=== PATIENT | male | born 1980 | race Caucasian/White ===

== ENCOUNTER 2021-02-19 07:29 | Inpatient (IN) ==
--- NOTE | 2021-02-18 08:44 | Anesthesiology Consultation ---
Date of Service February 18, 2021 Assessment & Plan (1) Encounter for pre-operative examination: Chart Review Chart Review: Acceptable Risk for Surgery and Patient NOT seen in Pre Admission Testing Per nursing assessment 02/18/21, patient denies any recent travel. No known Covid positive contacts or Covid related symptoms. No known Covid infection in the past 90 days. Covid test 02/17/21= negative -PCP informed of chest x-ray results. Per PCP response 02/18/21 requested nursing call patient and inquire if he has history of lung infection and/or symptoms of REILLY/cough. If notpatient may proceed with surgery. If yespostpone surgery. Per nursing 02/18/2021atient states he has no history of lung infections. He currently does not have any REILLY, SOB or cough. Advised patient per note below he can then proceed with surgery. PCP ordering chest CT and BMP for the future. History Surgery Operation Date: 02/19/21 09:20 Proposed Procedures p L4-S1 Decompression and Fusion, Spinal Cord Monitoring - Rubén Schuler DO Height/Weight Height: 6 ft 2 in Weight: 111.13 kg Allergies Allergy/AdvReac Type Severity Reaction Status Date / Time No Known Allergies Allergy Verified 02/18/21 08:19 Medications Home Medications Medication Instructions Recorded Confirmed Last Taken gabapentin 300 mg PO TID 02/18/21 02/18/21 Unknown Past Medical History Medical History History of melanoma ON FOREHEAD Hypoglycemia LAST EPISODE 2 YEARS AGO Lumbar herniated disc Past Family History Family History Other No family history of adverse response to anesthesia Past Surgical History Surgical History Hx of vasectomy [place] teeth removed Social History Smoking Status: Former smoker tobacco type: cigarettes and smokeless tobacco Do You Dip or Chew Tobacco: Yes (ADVISED BY NURSING (5 CANS WEEKLY)) Smoking End Date: 2005 Hx Alcohol Use: Yes Alcohol type: beer and hard liquor alcohol intake frequency: 3 or more drinks per day Alcohol Intake Frequency Comment: 3-5 DRINKS DAILY Hx Substance Use: No Testing Laboratory Results Laboratory Tests 02/17/21 02/17/21 02/17/21 16:50 16:50 16:50 WBC 7.36 Hgb 15.0 Hct 42.9 Plt Count 246 PT 10.3 INR 1.0 Sodium 136 Potassium 3.8 Chloride 104 Carbon Dioxide 29 BUN 9 Creatinine 0.83 Glucose 86 02/17/21= UA: negative Electrocardiogram Date: 02/17/21 Findings: + NSR @ (82bpm) Normal EKG. Chest X-Ray Date: 02/17/21 FINDINGS: Lung volumes are normal. There is no pneumothorax or pleural effusion. Cardiac size is normal. Mediastinal contours are normal. Note is made of numerous subcentimeter pulmonary nodules. These may be calcified. IMPRESSION: No acute cardiopulmonary findings. Multiple small pulmonary nodules. These may be calcified. However, correlation with prior imaging studies, if available, is recommended. In the absence of prior studies, a chest CT is recommended. (Sent for PCP review)
[~2021-02-19 07:29] MED LIST: ACETAMINOPHEN 500 MG TAB PO SCH; CeleBREX 200 MG CAP PO SCH; GABAPENTIN 900 MG DOSE PO SCH; LR 15ML/HR IV SCH; ceFAZolin 2000MG 2,000 MG/15 ML SYR IV SCH
[2021-02-19] MEDS ORDERED: GLYCOPYRROLATE 0.2 MG/ML VIAL ONE (09:38)
[2021-02-19] MEDS ORDERED: NEOSTIGMINE METHYLSULFATE 1 MG/ML 10ML VIAL ONE (09:38)
[2021-02-19] MEDS ORDERED: LIDOCAINE HCL 2% 2 ML VIAL/AMP(20MG/ML) INFIL ONE (09:38)
[2021-02-19] MEDS ORDERED: MIDAZOLAM HCL 1 MG/ML 2ML VIAL ONE (09:38)
[2021-02-19] MEDS ORDERED: fentaNYL citrate 100 MCG/2 ML VIAL ONE ×2 (09:38)
[2021-02-19] MEDS ORDERED: ONDANSETRON INJ 2 MG/ML 2 ML VIAL ONE (09:38)
[2021-02-19] MEDS ORDERED: PROPOFOL IV EMULSION 10 MG/ML 20 ML VIAL IV ONE (09:38)
[2021-02-19] MEDS ORDERED: DEXAMETHASONE SOD INJ 4 MG/ML VIAL ONE (09:38)
--- NOTE | 2021-02-19 09:49 | History & Physical Bridge Note ---
Date of Service February 19, 2021 History & Physical Bridge Note I have examined the patient, reviewed the History & Physical and in the interval since the performance of the History & Physical I have noted the following changes of clinical significance: no changes noted
--- NOTE | 2021-02-19 09:50 | History & Physical Report ---
Date of Service February 19, 2021 Assessment & Plan (1) Neurogenic claudication due to lumbar spinal stenosis: Admission and Anticipated Discharge Date Admission Date: L4-S1 decompression History of Present Illness Chief Complaint: Back and bilateral leg pain Primary Care Provider: Lo Armstrong MD This is a 40-year-old male who presents with chronic persistent back and leg pain. After failing course of nonoperative care is here for surgical invention. Allergies Allergy/AdvReac Type Severity Reaction Status Date / Time No Known Allergies Allergy Verified 02/19/21 07:49 Home Medications Medication Instructions Recorded Confirmed Type gabapentin 300 mg PO TID 02/18/21 02/19/21 History Past Med/Surg History Medical History History of melanoma ON FOREHEAD Hypoglycemia LAST EPISODE 2 YEARS AGO Lumbar herniated disc Surgical History Hx of vasectomy [place] teeth removed Family History Other No family history of adverse response to anesthesia Social History Smoking Status: Former smoker Smoking End Date: 2005; Second Hand Exposure: Yes ( A CHILD); Do You Dip or Chew Tobacco: Yes (ADVISED BY NURSING (5 CANS WEEKLY)); Tobacco Cessation Education Requested by Patient: No Hx Alcohol Use: Yes Alcohol type: beer and hard liquor Hx Substance Use: No Preferred Language: Frisian Provisioning Specialist Required: No Beliefs That Will Affect Care: None Current Living Situation: Family Current Living Situation Comment: AND 2 SONS Feels Safe at Home: Yes Safety Concerns: Feels Safe At This Time Assistive Devices: Contacts and Glasses Physical Exam Physical Exam: Patient is alert and oriented Heart regular in rhythm Lungs clear to auscultation Results & Data ([facility]) Vital Signs (Past 12 Hours) Vital Signs Temp Pulse Resp BP Pulse Ox 02/19/21 08:01 36.8 C 75 16 133/92 96
[2021-02-19] MEDS ORDERED: ePHEDrine sulfate 50 MG/ML AMP IV PRN (10:01)
[2021-02-19] MEDS ORDERED: PROMETHAZINE HCL 12.5 MG in SODIUM CHLORIDE 0.9% 50 ML IV PRN ×2 (10:01→14:03)
[2021-02-19] MEDS ORDERED: fentaNYL citrate 100 MCG/2 ML VIAL IV PRN (10:01)
[2021-02-19] MEDS ORDERED: ONDANSETRON INJ 2 MG/ML 2 ML VIAL IV PRN ×2 (10:01→14:03)
[2021-02-19] MEDS ORDERED: HYDROmorphone INJ 2 MG/ML SYR/VIAL IV PRN (10:01)
[2021-02-19] MEDS ORDERED: ATROPINE SULFATE 0.1 MG/ML 10ML SYR IV PRN (10:01)
[2021-02-19] MEDS ORDERED: BUPIVACAINE 0.5 % 5 MG/1 ML MPF 30ML VIAL ONE ×2 (10:31→10:32)
[2021-02-19] MEDS ORDERED: BACITRACIN INJ 50,000 UNIT VIAL ONE (10:31)
[2021-02-19] MEDS ORDERED: BUPIVACAINE/EPINEPHRINE 0.5% MPF 1:200,000 30 ML VIAL ONE (10:32)
[2021-02-19] MEDS ORDERED: HYDROmorphone INJ 2 MG/ML SYR/VIAL ONE (10:47)
[2021-02-19] MEDS ORDERED: SUGAMMADEX SODIUM 200 MG/2 ML VIAL IV ONE (11:50)
[2021-02-19] MEDS ORDERED: FLOSEAL HEMOSTATIC MATRIX 10ML TOP ONE (12:43)
--- NOTE | 2021-02-19 12:46 | Operative Report ---
Post Operative Report Pre & Post Diagnosis Operation Date: 02/19/21 09:20 Pre-Op Diagnosis: Disc Discorder with Radiculopathy, Lumbar Region Post-Op Diagnosis: Disc Discorder with Radiculopathy, Lumbar Region I identified the patient and participated in the time-out.: Yes Procedure Operation Date: 02/19/21 09:20 Actual Procedures #1 Lumbar decompression with bilateral medial facetectomies and foraminotomies L3-4, L4-5 and L5-S1. #2 posterior spinal fusion L4-5 L5-S1. #3 placement posterior instrumentation L4-5 L5-S1. #4 interbody fusion L4-5 L5-S1. #5 placement peek cage 13 x 26 mm at L4-L5 and 14 x 26 mm at L5-S1. #6 placement locally harvested morselized autograft in the posterior lateral gutters. #7 placement of I factor in the interbody spacers and posterior lateral gutters. Surgeon Rubén Schuler, DO Shipfitter Mary De Jesus Estimated Blood Loss 600 Findings See Below The patient is 6 foot 2 inches tall weighing over 118 kg with a BMI in excess of 33. This combined with an EBL of greater than 600 cc created significant technical difficulty requiring her deepest retractors longus instruments in order to perform his procedure. This had at least 50% increase operative time. Specimens None Indications This is a 40-year-old male who presents with above-mentioned diagnosis after failing extensive course of nonoperative care is here for the above-mentioned procedure. Description of Procedure Patient was met with identified informed consent obtained. Patient was then taken to the operative suite underwent a patient placed in prone position the Alejandro table atop Prasad frame. All bony prominences well-padded eyes inspected to ensure no external pressure placed upon the. This point the lumbar spine was prepped and draped in a sterile fashion. Sharp dissection with the assistance of Bovie cautery was performed down to and exposing the lamina and transverse processes of L4-L5 and sacral ala bilaterally. From a caudal cephalad fashion I performed a midline decompression of L5 and L4 but adequately decompress the nerve roots at L5-S1 I had to perform a complete facetectomy and foraminotomies on the left noting a free fragment of disc material migrated caudally within the axilla of the S1 nerve root. At L4 he required aggressive bilateral medial facetectomies for adequate decompression. At both L4-L5 iatrogenic instability was created. Subsequently after decompression and removal of the disc herniation at L4-5 L5-S1 I elected to place pedicle screws in L4-L5 and S1 levels. The proper sized wilder was then placed. By way of a transforaminal approach on the left complete discectomy of L5-S1 was performed e ndplates curetted to subcortical being bone and a 14 x 26 mm peek cage filled with I factor tapped in position. At L45 again a complete discectomy was performed through transfer approach on the left. The endplates curetted to subcortical mean bone and a 13 x 26 mm peek cage with I factor tapped in position. The rods then locked in final position bilaterally. The transverse processes of L4-L5 and sacral ala burred to subcortical bleeding bone. I factor and local autograft was placed in the posterior gutters. 15 round RICHA drain inserted. Incision was then closed with 1 Vicryl the fascia 2-0 Vicryl subcutaneously and 4 Monocryl for final skin closure. Steri-Strip sterile dressing placed. Patient waken taken PACU stable condition. Please note Mary De Jesus present at the entire procedure on the patient positioning complex portions of the surgery and final skin closure. Lastly spinal cord monitoring was utilized at the procedure no changes noted. I attest to the content of the Intraoperative Record and any orders documented therein. Any exceptions are noted below.
[2021-02-19] MEDS ORDERED: ROCURONIUM BROMIDE 10 MG/ML 5 ML VIAL IV ONE (12:49)
--- NOTE | 2021-02-19 13:24 | Fluoroscopy Report ---
FL lumbar spine 2-3V CLINICAL HISTORY: L4-S1 DECOMPRESSION AND FUSION COMPARISON STUDY: None. FLUOROSCOPY TIME: 28 seconds. FINDINGS: 2 fluoroscopic spot images of the lumbar spine demonstrate L4-S1 posterior decompression an d fusion. There is a curvilinear metallic density at the L4-5 laminectomy site. IMPRESSION: A curvilinear metallic density at the L4-5 laminectomy site. This could represent a known pledget versus a suture needle. Clinical correlation recommended. This finding was called/faxed to t he referring physician following dictation. ACT 112: Negative or not required by law. Electronically signed by: Baljinder Murphy M.D. 02/19/2021 1:22 PM
--- NOTE | 2021-02-19 13:43 | Anesthesiology Progress Note ---
Date of Service February 19, 2021 Anesthesia Post Procedure Vital Signs Vital Signs: Temp Pulse Pulse Resp BP Pulse Ox 02/19/21 13:35 76 14 95/54 L 95 02/19/21 13:25 71 16 103/68 95 02/19/21 13:15 85 13 116/71 94 02/19/21 13:09 36.3 C L 96 H 17 123/80 95 02/19/21 08:01 36.8 C 75 16 133/92 96 Pain Intensity Posterior Back: Pain Intensity: 8 Back: Pain Intensity: 3 Transfer of Care Handoff Completed per policy Notes Mental Status: alert / awake / arousable and participated in evaluation Patient Amnestic to Procedure: Yes Nausea / Vomiting: adequately controlled Pain: adequately controlled Airway Patency, RR, SpO2: stable & adequate BP & HR: stable & adequate Hydration State: stable & adequate Anesthetic Complications: no major complications apparent and Pt Satisfied with anesthetic care
[2021-02-19] MEDS ORDERED: DO NOT ADMINISTER PNEUMOCOCCAL VACCINE PRN (14:03)
[2021-02-19] MEDS ORDERED: HYDROmorphone INJ 0.5 MG/0.5 ML SYR IV PRN (14:03)
[2021-02-19] MEDS ORDERED: bisacodyL 10 MG SUPP PR PRN (14:03)
[2021-02-19] MEDS ORDERED: LORazepam 0.5 MG/1 ML VIAL IV PRN (14:03)
[2021-02-19] MEDS ORDERED: MAGNESIUM HYDROXIDE SUSP 30 ML UDC PO PRN (14:03)
[2021-02-19] MEDS ORDERED: SOD PHOSPHATE/SOD BIPHOSPHATE ENEMA 132 ML BTL PR PRN (14:03)
[2021-02-19] MEDS ORDERED: METOCLOPRAMIDE HCL INJ 5 MG/ML 2 ML VIAL IV PRN (14:03)
[2021-02-19] MEDS ORDERED: ACETAMINOPHEN 1,000 MG/100 ML VIAL IV PRN (14:03)
[2021-02-19] MEDS ORDERED: NALOXONE HCL 0.4 MG/1 ML VIAL/CARP IV PRN (14:03)
[2021-02-19] MEDS ORDERED: diphenhydrAMINE Capsule 25 MG CAP PO PRN (14:03)
[2021-02-19] MEDS ORDERED: ONDANSETRON 4 MG OD TAB PO PRN (14:03)
[2021-02-19] MEDS ORDERED: hydrOXYzine HCl 25 MG TAB PO PRN (14:03)
[2021-02-19] MEDS ORDERED: traMADol HCL 50 MG TABLET PO PRN (14:03)
[2021-02-19] MEDS ORDERED: FAMOTIDINE 20 MG TAB PO PRN (14:03)
[2021-02-19] MEDS ORDERED: ALUMINUM/MAGNESIUM SUSP 30 ML UDC PO PRN (14:03)
[2021-02-19] MEDS ORDERED: LORazepam 0.5 MG TAB PO PRN (14:03)
[2021-02-19] MEDS ORDERED: DO NOT ADMINISTER FLU VACCINE PRN (14:03)
[2021-02-19] MEDS: HYDROmorphone INJ 1 MG/ML SYRINGE IV PRN (14:15)
[2021-02-19] MEDS: LACTATED RINGER'S 1,000 ML IV SCH ×2 (14:43→20:27)
[2021-02-19] MEDS: KETOROLAC 30 MG/ML VIAL IV SCH ×2 (15:04→20:25)
[2021-02-19] MEDS: GABAPENTIN 300 MG CAP PO SCH ×2 (15:53→20:26)
[2021-02-19] MEDS: ceFAZolin 2000MG 2,000 MG/15 ML SYR IV SCH (18:20)
[2021-02-19] MEDS: oxyCODONE HCL IR 5 MG TAB (IMMEDIATE RELEASE) PO PRN (18:29)
[2021-02-19] MEDS: DOCUSATE SODIUM/SENNA 50/8.6MG TAB PO SCH (20:26)
[2021-02-20] MEDS: ceFAZolin 2000MG 2,000 MG/15 ML SYR IV SCH (02:05)
[2021-02-20] MEDS: KETOROLAC 30 MG/ML VIAL IV SCH ×2 (02:05→07:56)
[2021-02-20] MEDS: POLYETHYLENE (MIRALAX) 17 GM PACK PO SCH ×4 (05:40→22:46)
[2021-02-20] MEDS: oxyCODONE HCL IR 5 MG TAB (IMMEDIATE RELEASE) PO PRN ×3 (05:47→22:45)
[2021-02-20 06:11] LABS: Basophils # (auto) 0.01 K/uL (0-0.2); Basophils % (auto) 0.1 %; Eosinophils # (auto) 0.04 K/uL (0-0.5); Eosinophils % (auto) 0.3 %; Hematocrit (blood only) 33.7 % (42-52); Hemoglobin 11.6 g/dL (14.0-18.0); Immature Granulocytes # (auto) 0.01 K/uL (0.00-0.02); Immature Granulocytes % (auto) 0.1 %; Lymphocytes # (auto) 1.56 K/uL (1.2-3.4); Lymphocytes % (auto) 13.1 %; Mean Corpuscular Hemoglobin 30.6 pg (25-34); Mean Corpuscular Hgb Conc 34.4 g/dL (32-36); Mean Corpuscular Volume 88.9 fL (80-100); Mean Platelet Volume 9.2 fL (7.4-10.4); Monocytes # (auto) 1.51 K/uL (0.11-0.59); Monocytes % (auto) 12.6 %; Neutrophils # (auto) 8.82 K/uL (1.4-6.5); Neutrophils % (auto) 73.8 %; Platelet Count 218 K/uL (130-400); RDW Coefficient of Variation 12.7 % (11.5-14.5); RDW Standard Deviation 40.9 fL (36.4-46.3); Red Blood Count 3.79 M/uL (4.7-6.1); White Blood Count 11.95 K/uL (4.8-10.8)
[2021-02-20 06:34] LABS: Calcium 8.5 mg/dl (8.5-10.1); Creatinine Clr Calc Pharmacy 167.8 ml/min; Est GFR (African American) 129.8; Potassium 3.9 mmol/L (3.5-5.1)
[2021-02-20] MEDS: GABAPENTIN 300 MG CAP PO SCH ×3 (07:54→20:17)
[2021-02-20] MEDS: LACTATED RINGER'S 1,000 ML IV SCH (11:53)
--- NOTE | 2021-02-20 12:35 | Orthopedic Progress Note ---
Date of Service February 20, 2021 Assessment & Plan (1) Neurogenic claudication due to lumbar spinal stenosis: Admission and Anticipated Discharge Date Admission Date: February 19, 2021 This time continue physical therapy monitor his RICHA output hopefully discharge home early next week. Subjective Back pain controlled leg pain improved Physical Exam Physical Exam: On exam patient is a chair at the bedside. He is comfortable. He still has significant strength deficits to plantar flexion on the left foot. He is however tolerating walking with a walker. Results & Data ([facility]) Vital Signs (Past 12 Hours) Vital Signs Temp Pulse Resp BP BP Pulse Ox 02/20/21 07:43 36.9 C 84 16 120/69 98 02/20/21 03:30 36.5 C 42 L 14 117/82 96
[2021-02-20] MEDS: DOCUSATE SODIUM/SENNA 50/8.6MG TAB PO SCH (20:17)
[2021-02-20] MEDS: HYDROmorphone INJ 1 MG/ML SYRINGE IV PRN (20:17)
[2021-02-21] MEDS: POLYETHYLENE (MIRALAX) 17 GM PACK PO SCH ×3 (05:23→17:00)
[2021-02-21] MEDS: oxyCODONE HCL IR 5 MG TAB (IMMEDIATE RELEASE) PO PRN (06:20)
[2021-02-21] MEDS: ACETAMINOPHEN 500 MG TAB PO PRN ×2 (09:10→16:59)
[2021-02-21] MEDS: HYDROmorphone INJ 1 MG/ML SYRINGE IV PRN (09:10)
[2021-02-21] MEDS: GABAPENTIN 300 MG CAP PO SCH ×3 (09:15→21:59)
[2021-02-21] MEDS: dexAMETHasone 8 MG in SYRINGE 0 ML IV SCH (09:15)
--- NOTE | 2021-02-21 12:40 | Orthopedic Progress Note ---
Date of Service February 21, 2021 Assessment & Plan (1) Neurogenic claudication due to lumbar spinal stenosis: Admission and Anticipated Discharge Date Admission Date: February 19, 2021 We will continue with physical therapy today monitor his RICHA output. Pending his progress we may discharge home tomorrow. Subjective Patient's back pain is quite limiting today. His leg pain is improved but still significant numbness and tingling in the left lower extremity. Physical Exam Physical Exam: Patient has good strength testing lower extremities. Results & Data ([facility]) Vital Signs (Past 12 Hours) Vital Signs Temp Pulse Resp BP Pulse Ox 02/21/21 07:17 37.8 C H 97 H 18 121/76 92
[2021-02-21] MEDS: DOCUSATE SODIUM/SENNA 50/8.6MG TAB PO SCH (21:58)
[2021-02-22] MEDS: ACETAMINOPHEN 500 MG TAB PO PRN ×2 (01:21→09:08)
[2021-02-22] MEDS: GABAPENTIN 300 MG CAP PO SCH (09:08)
[2021-02-22] MEDS: dexAMETHasone 8 MG in SYRINGE 0 ML IV SCH (09:09)
--- NOTE | 2021-02-22 10:22 | Discharge Summary ---
Date of Service February 22, 2021 Admission HPI Per Admitting Provider This is a 40-year-old male who presents with chronic persistent back and leg pain. After failing course of nonoperative care is here for surgical invention. Admission Exam (Per Admitting) Constitutional well developed Eyes normal visual anguiano by confrontation ENMT external ear and nose normal, oropharynx normal Neck normal visual inspection Respiratory normal respiratory effort Cardiovascular Extremities: normal capillary refill Chest (Breasts) Chest: normal inspection of chest Gastrointestinal (Abdomen) Inspection/Auscultation: abdomen normal to inspection Musculoskeletal Extremities: extremities normal to inspection and strength 5/5 throughout Gait: normal gait Skin no rashes, warm and dry Neurologic normal touch/pain/proprioception and moves all extremities Psychiatric A+Ox3, euthymic affect Discharge Data Procedures Performed Operation Date: 02/19/21 09:20 Actual Procedures p L4-S1 Decompression and Fusion, Spinal Cord Monitoring(Not Applicable) - Rubén Schuler DO Hospital Course (1) Neurogenic claudication due to lumbar spinal stenosis: Patient has had an uneventful postoperative course status post lumbar decompression fusion. He has had a bowel movement. He is making great progress in physical therapy. Back pain is controlled. Denies radicular leg pain. RICHA drain is diminishing daily. He is being discharged home on postoperative day 3. Discharge Instructions ACTIVITY RECOMMENDATIONS: SELF CARE INSTRUCTIONS AFTER THORACIC/LUMBAR FUSIONS 1. You may walk to your tolerance. It is good exercise for your legs and back. Expect some back and intermittent leg aches and pains. 2. You may perform "counter-top" level activities (make a sandwich, wilmer with a project, etc.). 3. No bending or lifting of more than 10 pounds or back twisting of any nature (roll like a log when turning in bed). 4. You may ride in a car for 20-30 minutes at a time. No driving until after your first visit with your doctor. 5. Frequent changes of position and restricting sitting to 30 minutes at a time will help limit the amount of back spasms and stiffness you may experience. 6. You may discontinue the use of ambulatory aids (cane, crutches, etc.) once your strength and confidence allow. 7. You may brasswind instrument repairer the shower and let water strike your incision when you arrive home at least once daily. Do not take a tub bath, sit in a hot tub or go into a swimming pool until after your first recheck in the office. SPECIAL CARE INSTRUCTIONS: VERY IMPORTANT TO READ AND REVIEW A. Your surgical incision has been closed with a cosmetic suture under the skin that will dissolve in about 6 weeks. In 14 days, you can use a pair of clean scissors and cut the suture that is left outside of the skin at the ends of your incision. 1. The small skin tapes can be removed 7 days after surgery if they have not fallen off by that point. 2. You may keep the wound open to air as much as possible to promote healing after post-op day number 5 unless told otherwise by your doctor. 3. If you think the wound looks like it is becoming infected (redness or worsening drainage) and/or you are experiencing fever, chill or worsening back pain and muscle spasms, contact the office so that we may evaluate you as soon as possible. B. Complications are uncommon, but please contact us if you have any signs or symptoms of: 1. wound infection (fever higher than 102.5 degrees F, redness, separation of wound, drainage, or increasing pain from the incision) 2. blood clots in legs (pain, swelling, redness and warmth in legs) 3. urinary tract infection (fever higher than 102.5 degrees F, burning upon urination or increased frequency of urination) 4. nerve problems (inability to walk on your toes or heels, numbness, loss of bowel or bladder control) 5. any other symptoms that concern you C. Please call the office at if you have any concerns or questions about your operation or recovery. D. No smoking! Smoking drastically decreases the chance of a solid fusion. E. Do not take any anti-inflammatory medications (Indocin, Advil, Motrin, Aspirin, Naprosyn, etc.) as these may inhibit the chance of a solid fusion. Tylenol is okay to take for pain. MANAGING PAIN AFTER SPINAL SURGERY 1. Narcotic medication is intended for short-term use and will be provided for surgical pain. Surgical pain usually lasts for a period of 4-6 weeks. Narcotic medication includes Percocet, Vicodin, Darvocet, Tylenol #3 or Lortab. 2. Longer-term pain is more appropriately treated with non-narcotic medication such as Tylenol ES. 3. Muscle spasm is not appropriately treated with narcotics. Muscle relaxers such as Soma, Flexeril or Skelaxin can be used along with Tylenol ES. 4. Remember that we all live with some "aches and pains". This is not unusual or uncommon after an injury or as we get older. a. Back pain is expected and may include muscle spasms for 4 to 6 weeks after surgery. The pain should gradually improve. If the pain worsens for no apparent reason, please contact the office. b. Intermittent leg pain may also be experienced and should not be concerned about unless it worsens for no apparent reason. If so, please contact the office. 5. We will provide appropriate medication within the normal guidelines of their prescribed use. We will also be very cautious and aware of potential abuse and extended duration of patients' medication needs. a. Pain medications are for your comfort and to assist with sleep and rest so that the tissue can heal. They are not provided in order to return to normal activity and should not be used through the day. To do so or worsening pain at night can result from ongoing tissue damage and development of tolerance to the prescribed medicine. 6. Please allow 2-3 days to process refills. Prescriptions will not be mailed but must be picked up at the office. FOLLOW UP VISIT: Keep your scheduled follow-up appointment. Any questions, please call the office at . Supervising Physician Co-Signing Physician Notes Dr. Rubén Schuler
== END 2021-02-22 12:09 | disposition home or self-care (01) | DRG 455 ==
LOC: ASU 07:29 → 3E 13:06